=== PATIENT | male | born 1960 | race Caucasian/White ===

== ENCOUNTER 2020-11-17 17:29 | Inpatient (IN) | payer BC ==
[~2020-11-17] VITALS: Ht 177.8 cm; Wt 107.7 kg
[2020-11-17 18:08] LABS: HEMOGLOBIN 13.9 gm/dl (14.0-17.5); RED BLOOD COUNT 4.14 M/UL (4.20-5.50); WHITE BLOOD COUNT 3.1 K/UL (4.5-11.0)
[2020-11-17 18:35] LABS: BUN/CREATININE RATIO 14 (0-10)
[2020-11-17] MEDS ORDERED: TIMOPTIC 0.5% OP5 ML OU (23:52)
[2020-11-17] MEDS ORDERED: LOSARTAN POTAS100 MG PO (23:53)
[2020-11-17] MEDS ORDERED: WARFARIN SODIUM5 MG PO (23:54)
[2020-11-17] MEDS ORDERED: JANTOVEN2.5 MG PO (23:55)
[2020-11-17] MEDS ORDERED: DILTIAZEM 24HR180 M1 PO (23:56)
[2020-11-18 04:02] LABS: HEMOGLOBIN 12.8 gm/dl (14.0-17.5); RED BLOOD COUNT 3.74 M/UL (4.20-5.50)
[2020-11-18 04:13] LABS: WHITE BLOOD COUNT 14.1 K/UL (4.5-11.0)
[2020-11-18 04:40] LABS: BUN/CREATININE RATIO 15 (0-10)
[2020-11-19 03:03] LABS: HEMOGLOBIN 12.5 gm/dl (14.0-17.5); RED BLOOD COUNT 3.67 M/UL (4.20-5.50)
[2020-11-19 03:14] LABS: WHITE BLOOD COUNT 9.6 K/UL (4.5-11.0)
[2020-11-19 03:28] LABS: BUN/CREATININE RATIO 17 (0-10)
[2020-11-19 10:14] LABS: HBSAG SCREEN Negative (Negative); HEP A AB, IGM Negative (Negative); HEP B CORE AB, IGM Negative (Negative); HEP C VIRUS AB >11.0 (0.0-0.9)
[2020-11-20 05:04] LABS: HEMOGLOBIN 12.2 gm/dl (14.0-17.5); RED BLOOD COUNT 3.57 M/UL (4.20-5.50); WHITE BLOOD COUNT 7.6 K/UL (4.5-11.0)
[2020-11-20 05:28] LABS: BUN/CREATININE RATIO 15 (0-10)
[2020-11-20] MEDS ORDERED: AUGMENTIN 875-1 EACH PO (09:45)
[2020-11-20] MEDS ORDERED: ZYVOX600 MG PO (09:45)
[2020-11-20] MEDS ORDERED: VITAMIN B-1100 M1 PO (09:45)
[2020-11-21 06:05] LABS: BUN/CREATININE RATIO 14 (0-10)
== END 2020-11-21 13:22 | disposition home or self-care (01) | DRG 872 ==
LOC: ER1 17:29 → PROG CARE 20:50 → CDU 20:50 → PROG CARE 11-18 14:06
PROVIDERS: Internal Medicine; Physician Assistant Medical; ADMIT Internal Medicine
DX: A41.02 Sepsis due to Methicillin resistant Staphylococcus aureus (principal); I48.21 Permanent atrial fibrillation; I85.00 Esophageal varices without bleeding; N30.00 Acute cystitis without hematuria; E87.2 Acidosis; K04.7 Periapical abscess without sinus; Z20.822 Contact with and (suspected) exposure to COVID-19; R06.00 Dyspnea, unspecified; K74.60 Unspecified cirrhosis of liver; K80.20 Calculus of gallbladder without cholecystitis without obstruction; D69.6 Thrombocytopenia, unspecified; J02.9 Acute pharyngitis, unspecified; T50.8X5A Adverse effect of diagnostic agents, initial encounter; Y92.239 Unspecified place in hospital as the place of occurrence of the external cause; I10 Essential (primary) hypertension; E66.9 Obesity, unspecified; H40.9 Unspecified glaucoma; Z68.34 Body mass index [BMI] 34.0-34.9, adult; Z79.01 Long term (current) use of anticoagulants
CPT/HCPCS: 36415; 71045; 74175; 76705; 80048; 80053; 80074; 80202; 81001; 82550; 82553; 83605; 83874; 83880; 84132; 84484; 85025; 85610; 86140; 87040; 87086; 90686; 93005; 96365; 96367; 96375; 96376; 99285; J0696; J2543; J3370; J7030; J7070; Q9965; Q9967; U0002